=== PATIENT | female | born 1940 | race Hispanic/Latino ===

== ENCOUNTER 2016-07-10 07:56 | Emergency (ER) | payer MEDICARE ==
[2016-07-10] MEDS ORDERED: MORPHINE IV ONE ×2 (09:52→12:08)
[2016-07-10] MEDS ORDERED: ZOFRAN IV ONE (09:53)
--- NOTE | 2016-07-10 10:02 | Emergency Department Report ---
ED Back Pain/Injury HPI - General Chief Complaint: Back Pain/Injury Stated Complaint: BACK PAIN Time Seen by Provider: 07/10/16 09:47 Source: patient, family, EMS, RN notes reviewed Limitations: Physical Limitation - History of Present Illness Initial Comments: 75-year-old female presents to the emergency department via EMS complaining of back pain. Patient states she underwent back surgery on 07/08/2016 at [facility] by Dr. Wall. Patient states she was doing well after the surgery until last night. She began having increased pain in her lower back and states that her legs began feeling heavy. Patient states she went to her knees in the bathroom and was unable to stand back up. Patient is also now complaining of urinary incontinence. She denies fever. EMS reports that the patient initially had low room air oxygen saturation and she was placed on 3 L of oxygen via nasal cannula. Patient states she has been taking her Percocet at home, but this is not helping. There are no other complaints. MD Complaint: back pain -: Gradual, days(s) (1) Similar Symptoms Previously: No Place: home Radiation: none Severity: severe Severity scale (0 -10): 8 Quality: aching Consistency: constant Improves With: none Worsens With: none Associated Symptoms: weakness, incontinence - Related Data Home Medications Medication Instructions Recorded Confirmed Last Taken Align 07/10/16 Unknown Aspirin [Aspirin BABY CHEW TAB] 81 mg PO QDAY 07/10/16 07/10/16 Unknown AtorvaSTATin [Lipitor] 80 mg PO DAILY 07/10/16 07/10/16 07/09/16 Calcium Carbonate [Calcium] 300 mg PO DAILY 07/10/16 07/10/16 Unknown Carboxymethylcellulos/Glycerin 07/10/16 Unknown [Refresh Optive Eye Drops] Cetirizine HCl [ZyrTEC] 1 tab PO DAILY 07/10/16 07/10/16 Unknown Cholecalciferol (Vitamin D3) 5,000 unit PO DAILY 07/10/16 07/10/16 Unknown [Vitamin D3] Chromium Picolinate 1,000 mcg PO DAILY 07/10/16 07/10/16 Unknown Folic Acid 30 mg PO QDAY 07/10/16 07/10/16 Unknown Gabapentin [Neurontin] 300 mg PO Q8HR 07/10/16 07/10/16 07/09/16 Hydrochlorothiazide [HCTZ] 25 mg PO QDAY 07/10/16 07/10/16 07/09/16 Iron,Carbonyl/Vit C/Vit B12/FA 1 tab PO DAILY 07/10/16 07/10/16 Unknown [Iron 100 Plus Tablet] Ketotifen Fumarate [Alaway] 10 ml OP 07/10/16 Unknown Leflunomide [Arava] 10 mg PO QDAY 07/10/16 07/10/16 Unknown Lisinopril [Zestril TAB] 40 mg PO QDAY 07/10/16 07/10/16 07/09/16 Magnesium 400 mg PO DAILY 07/10/16 07/10/16 Unknown Meloxicam [Mobic] 15 mg PO DAILY 07/10/16 07/10/16 Unknown Meriva-Sf 1 tab PO DAILY 07/10/16 Unknown Metoprolol [Lopressor TAB] 50 mg PO DAILY 07/10/16 07/10/16 07/10/16 Mometasone Furoate [Nasonex] 2 spray NS QDAY 07/10/16 07/10/16 Unknown [place]-3 Fatty Acids/Fish Oil [Fish 1 each PO DAILY 07/10/16 07/10/16 Unknown Oil] One Daily Multivitamin Tablet 1 tab PO DAILY 07/10/16 07/10/16 Unknown Pimecrolimus [Elidel] 1 applicatio TP BID 07/10/16 07/10/16 Unknown Potassium Gluconate PRN 07/10/16 Unknown Prednisone [predniSONE (Kaylie) ER 5 mg PO QDAY 07/10/16 07/10/16 07/09/16 TAB] Psyllium Husk [Konsyl] 300 gm PO BID 07/10/16 07/10/16 Unknown Tumeric Curcumin PRN 07/10/16 Unknown Ubidecarenone [Co Q-10] 100 mg PO DAILY 07/10/16 07/10/16 Unknown Vitamin B Complex 1 tab PO DAILY 07/10/16 07/10/16 Unknown Vitamin E (Dl,Tocopheryl Acet) 400 unit PO DAILY 07/10/16 07/10/16 Unknown [E-200] amLODIPine 10 mg PO DAILY 07/10/16 07/10/16 07/09/16 traMADol [Ultram] 50 mg PO Q4HR PRN 07/10/16 07/10/16 Unknown Allergies Allergy/AdvReac Type Severity Reaction Status Date / Time bacitracin AdvReac Severe HIVES,RASH Unverified 12/09/12 08:56 [From Neosporin ITCHING ([id number])] bacitracin zinc AdvReac Severe HIVES,RASH Unverified 12/09/12 08:56 [From Neosporin ITCHING ([id number])] latex AdvReac Severe HIVES,RASH Unverified 12/09/12 08:56 & SWELLING neomycin sulfate AdvReac Severe HIVES,RASH Unverified 12/09/12 08:56 [From Neosporin ITCHING ([id number])] niacin AdvReac Severe HIVES, Unverified 12/09/12 08:56 ITCHING,WELTS Penicillins AdvReac Severe HIVES, Unverified 12/09/12 08:56 WELTS polymyxin B AdvReac Severe HIVES,RASH Unverified 12/09/12 08:56 [From Neosporin ITCHING ([id number])] trolamine salicylate AdvReac Severe MCNEIL SKIN Unverified 12/09/12 08:56 [From Sportscreme] ED Review of Systems ROS: Stated complaint: BACK PAIN Other details as noted in HPI Comment: All other systems reviewed and negative Genitourinary: as per HPI Musculoskeletal: back pain Neurological: weakness ED Past Medical Hx - Past Medical History Previous Medical History?: Yes Hx Hypertension: Yes Hx Diabetes: Yes Hx Arthritis: Yes Additional medical history: Back pain, Hemmorrhoids, Neck goiter, Poor dentation - Surgical History Past Surgical History?: Yes Hx Appendectomy: Yes Additional Surgical History: Back surgery, Oral surgery, Neck goiter removed, Hemmorrhoids, Hysterectomy, Right shoulder surgery, Lumbar epidural steroid injections x 2 - Family History Family history: no significant - Social History Smoking Status: Unknown if ever smoked - Medications Home Medications: Home Medications Medication Instructions Recorded Confirmed Last Taken Type Align 07/10/16 Unknown History Aspirin [Aspirin BABY CHEW TAB] 81 mg PO QDAY 07/10/16 07/10/16 Unknown History AtorvaSTATin [Lipitor] 80 mg PO DAILY 07/10/16 07/10/16 07/09/16 History Calcium Carbonate [Calcium] 300 mg PO DAILY 07/10/16 07/10/16 Unknown History Carboxymethylcellulos/Glycerin 07/10/16 Unknown History [Refresh Optive Eye Drops] Cetirizine HCl [ZyrTEC] 1 tab PO DAILY 07/10/16 07/10/16 Unknown History Cholecalciferol (Vitamin D3) 5,000 unit PO DAILY 07/10/16 07/10/16 Unknown History [Vitamin D3] Chromium Picolinate 1,000 mcg PO DAILY 07/10/16 07/10/16 Unknown History Folic Acid 30 mg PO QDAY 07/10/16 07/10/16 Unknown History Gabapentin [Neurontin] 300 mg PO Q8HR 07/10/16 07/10/16 07/09/16 History Hydrochlorothiazide [HCTZ] 25 mg PO QDAY 07/10/16 07/10/16 07/09/16 History Iron,Carbonyl/Vit C/Vit B12/FA 1 tab PO DAILY 07/10/16 07/10/16 Unknown History [Iron 100 Plus Tablet] Ketotifen Fumarate [Alaway] 10 ml OP 07/10/16 Unknown History Leflunomide [Arava] 10 mg PO QDAY 07/10/16 07/10/16 Unknown History Lisinopril [Zestril TAB] 40 mg PO QDAY 07/10/16 07/10/16 07/09/16 History Magnesium 400 mg PO DAILY 07/10/16 07/10/16 Unknown History Meloxicam [Mobic] 15 mg PO DAILY 07/10/16 07/10/16 Unknown History Meriva-Sf 1 tab PO DAILY 07/10/16 Unknown History Metoprolol [Lopressor TAB] 50 mg PO DAILY 07/10/16 07/10/16 07/10/16 History Mometasone Furoate [Nasonex] 2 spray NS QDAY 07/10/16 07/10/16 Unknown History [place]-3 Fatty Acids/Fish Oil [Fish 1 each PO DAILY 07/10/16 07/10/16 Unknown History Oil] One Daily Multivitamin Tablet 1 tab PO DAILY 07/10/16 07/10/16 Unknown History Pimecrolimus [Elidel] 1 applicatio TP BID 07/10/16 07/10/16 Unknown History Potassium Gluconate PRN 07/10/16 Unknown History Prednisone [predniSONE (Kaylie) ER 5 mg PO QDAY 07/10/16 07/10/16 07/09/16 History TAB] Psyllium Husk [Konsyl] 300 gm PO BID 07/10/16 07/10/16 Unknown History Tumeric Curcumin PRN 07/10/16 Unknown History Ubidecarenone [Co Q-10] 100 mg PO DAILY 07/10/16 07/10/16 Unknown History Vitamin B Complex 1 tab PO DAILY 07/10/16 07/10/16 Unknown History Vitamin E (Dl,Tocopheryl Acet) 400 unit PO DAILY 07/10/16 07/10/16 Unknown History [E-200] amLODIPine 10 mg PO DAILY 07/10/16 07/10/16 07/09/16 History traMADol [Ultram] 50 mg PO Q4HR PRN 07/10/16 07/10/16 Unknown History ED Physical Exam - General Limitations: Physical Limitation General appearance: alert, in no apparent distress - Head Head exam: Present: atraumatic, normocephalic - Eye Eye exam: Present: normal appearance, PERRL, EOMI - ENT ENT exam: Present: normal exam, normal orophraynx, mucous membranes moist - Neck Neck exam: Present: normal inspection, full ROM. Absent: tenderness - Respiratory Respiratory exam: Present: normal lung sounds bilaterally. Absent: respiratory distress - Cardiovascular Cardiovascular Exam: Present: regular rate, normal rhythm, normal heart sounds - GI/Abdominal GI/Abdominal exam: Present: soft, normal bowel sounds. Absent: distended, tenderness - Extremities Exam Extremities exam: Present: normal inspection, full ROM. Absent: tenderness - Back Exam Back exam: Present: other (surgical dressing in place over the lumbar spine. There appears to be no surrounding erythema or drainage. Mild tenderness to palpation over the site.) - Neurological Exam Neurological exam: Present: alert, oriented X3, motor sensory deficit (4/5 strength bilateral lower extremities. Remainder of the neurologic exam is normal.) - Skin Skin exam: Present: warm, dry, intact ED Course Vital Signs 07/10/16 07/10/16 07/10/16 07:55 08:00 08:08 Temperature 98.5 F Pulse Rate 99 H 100 H Respiratory 19 16 Rate Blood Pressure 172/61 172/61 O2 Sat by Pulse 90 97 98 Oximetry 07/10/16 07/10/16 07/10/16 08:11 08:21 08:31 Temperature Pulse Rate 132 H 93 H Respiratory 16 17 13 Rate Blood Pressure 172/61 172/61 172/61 O2 Sat by Pulse 98 99 98 Oximetry 07/10/16 07/10/16 07/10/16 08:41 08:51 09:00 Temperature Pulse Rate 100 H 104 H 100 H Respiratory 15 16 16 Rate Blood Pressure 172/61 172/61 159/56 O2 Sat by Pulse 97 99 Oximetry 07/10/16 09:11 Temperature Pulse Rate 100 H Respiratory 27 H Rate Blood Pressure 159/56 O2 Sat by Pulse 98 Oximetry ED Medical Decision Making - Medical Decision Making Pain medication has been diminished to the patient. I have spoken with Dr. Wall. He is requesting the patient be transferred to [facility] as a direct admit under him for MRI. This was discussed with the patient and family who agree with transfer. [facility] was contacted regarding the transfer and stated that no beds were available at this time and they do not accept ER to ER transfers. I have spoken with the bed control people at [facility] stressing the potential emergent state of the patient and the need for timely evaluation by her surgeon for potential surgical intervention. They state they are expecting some discharges later today. They are establishing an company accountant and will obtain admission orders. Once this is obtained, they state they will notify us and the patient can be transferred to the emergency department to begin the admission process. - Differential Diagnosis epidural hematoma, epidural abscess Critical care attestation.: If time is entered above; I have spent that time in minutes in the direct care of this critically ill patient, excluding procedure time. ED Disposition Clinical Impression: Postoperative back pain Disposition: DC/TX SHORT-TERM GEN HOSP INPT Is pt being admited?: No Condition: Stable Referrals: PRIMARY CARE, [Primary Care Provider] - 3-5 Days Time of Disposition: 11:14
[2016-07-10 12:13] VITALS: BP 176/59
--- NOTE | 2016-07-10 12:31 | Admit Criteria Form ---
Admission Criteria Documentation: BACK PAIN Clinical Indications for Admission to Inpatient Care (Place 'X' for any and all applicable criteria): Admission is indicated for ANY ONE of the following (1)(2)(3)(4)(5)(6): [X ]I. Inpatient admission required rather than observation care (Also use Back Pain: Observation Care as appropriate) because of ANY ONE of the following [X ]a) Severe pain requiring acute inpatient management [ ]b) Immediate inpatient surgery [ ]c) Other condition, treatment or monitoring requiring inpatient admission [ ]II. Spine fracture with significant damage or threat of damage to vertebral column or spinal cord [ ]III. Progressive or severe neurologic deficit [ ]IV. Suspected spinal infection (e.g., epidural abscess, vertebral osteomyelitis)(10) [ ]V. Suspected cause requires inpatient treatment (eg, aortic dissection) [ ]. Cauda equina syndrome as indicated by ANY ONE of the following (9): [ ]a) Bowel dysfunction [ ]b) Bladder dysfunction [ ]c) Saddle anesthesia [ ]d) Neurologic abnormality suggesting cauda equina impingement Extended stay beyond goal length of stay may be needed for (3)(25): [ ]a) Spinal cord compression from stenosis, disk, or tumor (8)(9) [ ]b) Traumatic or pathologic vertebral fracture (33) [ ]c) Vertebral infection(10) [ ]d) Severe pain that is difficult to control [ ]e) Older patients(65 years or older) The original [facility] content created by [employer] has been revised. The portions of the content which have been revised are identified through the use of italic text or in bold, and [facility] has neither reviewed nor approved the modified material. All other unmodified content is copyright [employer]. Please see references footnoted in the original [facility] edition 2016
== END 2016-07-10 13:39 | disposition short-term general hospital (02) ==
LOC: ED 07:56
DX: G89.18 Other acute postprocedural pain (principal); M54.9 Dorsalgia, unspecified; I10 Essential (primary) hypertension; E11.9 Type 2 diabetes mellitus without complications; M19.90 Unspecified osteoarthritis, unspecified site; Z90.49 Acquired absence of other specified parts of digestive tract; Z90.710 Acquired absence of both cervix and uterus; Z79.82 Long term (current) use of aspirin; Z91.040 Latex allergy status; Z88.0 Allergy status to penicillin; Z88.8 Allergy status to other drugs, medicaments and biological substances
CPT/HCPCS: 96374; 96375; 96376; 99285; J2270; J2405